=== PATIENT | female | born 1955 | race Asian ===

== ENCOUNTER → 2017-06-01 | Outpatient (CLI) | payer OTHER ==
[~2017-06-01] MED LIST: CETI10CA8 PO; GLUC1TAB13 PO; MULT-1085 PO; PSYL3.4P2 PO
--- NOTE | 2017-06-02 08:41 | RADIOLOGY IMAGING REPORT ---
FAC[place] [facility] [place]IENT NAME: WIL MIRANDA : [id number] MR: [id number] V: [id number] EXAM DATE: [id number] ORDERING PHYSICIAN: CECI ROBERTS TECHNOLOGIST: Makayla Bowie PROCEDURE:BILATERAL DIGITAL SCREENING MAMMOGRAM WITH CAD ASSISTED INTERPRETATION & 3D TOMOSYNTHESIS COMPARISON:Prior mammograms dated 01/20/16, 10/28/14, 09/05/13, 06/01/12, 06/01/11 INDICATIONS:screening FINDINGS: A small amount of fibroglandular tissue is seen throughout the breasts. The parenchymal pattern has remained stable allowing for difference in mammographic technique & patient positioning. There is no evidence of malignant appearing mass, malignant appearing calcification or other secondary sign of malignancy in either breast. DIAGNOSTIC CATEGORY 1--NEGATIVE. RECOMMENDATIONS: ROUTINE MAMMOGRAM AND CLINICAL EVALUATION. IMPRESSION: BIRADS 1: Negative. No significant abnormality is seen. Dictated by: Corazon Sharp M.D. on 06/01/2017 at 16:45 Transcribed by: FRANSICO on 06/02/2017 at 7:10 Approved by: Corazon Sharp M.D. on 06/02/2017 at 8:40 [facility]
== END ==
LOC: MAMO 01:21
PROVIDERS: ATTEND Nurse Practitioner Psychiatric/Mental Health
DX: Z12.31 Encounter for screening mammogram for malignant neoplasm of breast (principal)
CPT/HCPCS: 77063; 77067